=== PATIENT | female | born 1995 | race Caucasian/White ===

== ENCOUNTER 2018-01-31 08:25 | Emergency (ER) | payer MEDICAID ==
[~2018-01-31] VITALS: Ht 167.6 cm; Wt 82.0 kg
[2018-01-31 08:38] VITALS: BP 118/66
== END 2018-01-31 09:07 | disposition home or self-care (01) ==
LOC: ER 08:25
DX: J45.909 Unspecified asthma, uncomplicated (principal)
CPT/HCPCS: 99283